=== PATIENT | male | born 1985 | race Caucasian/White ===

== ENCOUNTER 2016-10-31 08:45 | Outpatient (RCR) | payer MEDICAID | END 2016-11-01 | LOC: M OUTALCOH 08:45 | PROVIDERS: ATTEND Psychiatry & Neurology Psychiatry | DX: F10.20 Alcohol dependence, uncomplicated (principal); F17.200 Nicotine dependence, unspecified, uncomplicated ==

== ENCOUNTER 2016-11-25 08:03 | Outpatient (RCR) | payer MEDICAID | END 2016-11-29 | LOC: M OUTALCOH 08:03 | PROVIDERS: ATTEND Psychiatry & Neurology Psychiatry | DX: Z13.9 Encounter for screening, unspecified (principal); F10.20 Alcohol dependence, uncomplicated; F17.200 Nicotine dependence, unspecified, uncomplicated ==

== ENCOUNTER → 2016-12-30 | Outpatient (RCR) | payer MEDICAID | LOC: M OUTALCOH 12-07 08:50 | PROVIDERS: ATTEND Psychiatry & Neurology Psychiatry | DX: Z13.9 Encounter for screening, unspecified (principal); F10.20 Alcohol dependence, uncomplicated; F17.200 Nicotine dependence, unspecified, uncomplicated ==

== ENCOUNTER 2017-01-26 15:00 | Outpatient (RCR) | payer MEDICAID | END 2017-01-29 | LOC: M OUTALCOH 15:00 | PROVIDERS: ATTEND Psychiatry & Neurology Psychiatry | DX: Z13.9 Encounter for screening, unspecified (principal); F10.20 Alcohol dependence, uncomplicated; F17.200 Nicotine dependence, unspecified, uncomplicated ==

== ENCOUNTER 2017-02-20 16:00 | Outpatient (RCR) | payer MEDICAID | END 2017-03-01 | LOC: M OUTALCOH 16:00 | PROVIDERS: ATTEND Psychiatry & Neurology Psychiatry | DX: Z13.9 Encounter for screening, unspecified (principal); F10.20 Alcohol dependence, uncomplicated; F17.200 Nicotine dependence, unspecified, uncomplicated ==

== ENCOUNTER 2017-03-28 09:00 | Outpatient (RCR) | payer MEDICAID | END 2017-03-31 | LOC: M OUTALCOH 09:00 | PROVIDERS: ATTEND Psychiatry & Neurology Psychiatry | DX: Z13.9 Encounter for screening, unspecified (principal); F10.20 Alcohol dependence, uncomplicated; F17.200 Nicotine dependence, unspecified, uncomplicated ==

== ENCOUNTER → 2017-11-08 | Outpatient (CLI) | payer MEDICAID | LOC: M OUTALCOH 12:11 | DX: F10.20 Alcohol dependence, uncomplicated (principal) ==

== ENCOUNTER 2019-04-30 13:52 | Emergency (ER) | payer MEDICAID, OTHER ==
[~2019-04-30] VITALS: Ht 172.7 cm; Wt 68.2 kg
[2019-04-30 13:52] VITALS: BP 173/96
[2019-04-30] MEDS ORDERED: DERMABOND TOPICAL SKIN ADHESIVE TOP ONE (16:30)
== END 2019-04-30 16:45 | disposition home or self-care (01) ==
LOC: M ED 13:52
DX: S61.412A Laceration without foreign body of left hand, initial encounter (principal); W26.8XXA Contact with other sharp object(s), not elsewhere classified, initial encounter; Y92.89 Other specified places as the place of occurrence of the external cause; Y99.0 Civilian activity done for income or pay; F17.210 Nicotine dependence, cigarettes, uncomplicated

== ENCOUNTER 2025-05-05 06:50 | Emergency (ER) | payer MEDICAID, OTHER, SELFPAY ==
[2025-05-05] MEDS: EPINEPHrine 1 MG/10 ML SYRINGE 1.5IN IV STA (06:53)
== END 2025-05-05 06:55 | disposition home or self-care (01) ==
LOC: M ED 06:50 → EDBD 06:50 → M ED 06:55
DX: I46.9 Cardiac arrest, cause unspecified (principal)
CPT/HCPCS: 92950; 96374; 99285; J0168

== ENCOUNTER → 2025-05-05 | Outpatient (REF) | LOC: M LAB 11:46 | PROVIDERS: ATTEND Pathology Forensic Pathology ==